=== PATIENT | male | born 1995 | race Caucasian/White ===

== ENCOUNTER 2019-10-07 21:38 | Emergency (ER) | payer SELFPAY ==
[2019-10-07] MEDS ORDERED: HYDROCODONE/ACETAMINOPHEN 5-325 MG TABLET PO ONE (21:47)
--- NOTE | 2019-10-07 21:50 | ER Document Report ---
ED Medical Screen (RME) - General Chief Complaint: Arm Injury Stated Complaint: FALL Time Seen by Provider: 10/07/19 21:47 Mode of Arrival: Ambulatory Information source: Patient Notes: Patient states he slipped down 6 steps injuring his right upper extremity. Patient complains of the worst pain to the right elbow although does have pain in the proximal forearm and distal humerus. I have greeted and performed a rapid initial assessment of this patient. A comprehensive ED assessment and evaluation of the patient, analysis of test results and completion of the medical decision making process will be conducted by additional ED providers. Physical Exam - Vital signs Vitals: Temp Pulse Resp BP Pulse Ox 97.6 F 86 16 121/82 100 10/07/19 21:42 10/07/19 21:42 10/07/19 21:42 10/07/19 21:42 10/07/19 21:42 - General General appearance: Appears well, Alert Notes: Tenderness to the distal right humerus proximal right forearm and right elbow, abrasion overlying the elbow and forearm, 2+ radial pulse Course - Vital Signs Vital signs: Temp Pulse Resp BP Pulse Ox 97.6 F 86 16 121/82 100 10/07/19 21:42 10/07/19 21:42 10/07/19 21:42 10/07/19 21:42 10/07/19 21:42
--- NOTE | 2019-10-07 22:30 | RADIOLOGY REPORT (SQ) ---
EXAM DESCRIPTION: XR HUMERUS COMPLETED DATE/TME: 10/07/2019 21:47 CLINICAL HISTORY: 24 years, Male, fall COMPARISON: None. NUMBER OF VIEWS: 2 TECHNIQUE: 2 views right humerus LIMITATIONS: None. FINDINGS: Negative for acute fracture or dislocation. Prominent nutrient vessel seen on the lateral view distally. Soft tissues are unremarkable IMPRESSION: Negative exam copyright 2011 [employer]- All Rights Reserved
--- NOTE | 2019-10-07 22:33 | RADIOLOGY REPORT (SQ) ---
EXAM DESCRIPTION: Right forearm, two view series CLINICAL HISTORY: 24 years Male, fall COMPARISON: None. FINDINGS: No evidence for fracture dislocation. Soft tissues are unremarkable. IMPRESSION: Unremarkable right forearm film
--- NOTE | 2019-10-07 22:35 | RADIOLOGY REPORT (SQ) ---
EXAM DESCRIPTION: CLINICAL HISTORY: 24 years Male, . Acute trauma. COMPARISON: None. FINDINGS: No evidence for fracture dislocation or soft tissue abnormality. IMPRESSION: Negative right elbow films.
[2019-10-08] MEDS ORDERED: OXYCODONE-ACETAMINOPHEN 5-325 MG TABLET PO ONE (00:30)
[2019-10-08] MEDS ORDERED: PROMETHAZINE HCL 25 MG TABLET PO ONE (00:30)
[2019-10-08] MEDS ORDERED: IBUPROFEN 600 MG TABLET PO ONE (00:30)
--- NOTE | 2019-10-08 00:34 | ER Document Report ---
HPI - HPI Time Seen by Provider: 10/07/19 21:47 Pain Level: 5 Context: Patient is a 24-year-old male that comes to the emergency department for chief complaint of injury to the right forearm, elbow, distal arm. He states that he slipped and fell on steps landing on his elbow causing an abrasion, bruising, swelling. He denies numbness, shoulder pain, neck injury, head injury, or any other complaints. His tetanus is reportedly up-to-date within 5 years. He takes no daily medications. Past Medical History - General Information source: Patient - Social History Smoking Status: Unknown if Ever Smoked Drug Abuse: None Lives with: Spouse/Significant other Family History: Reviewed & Not Pertinent Patient has suicidal ideation: No Patient has homicidal ideation: No - Immunizations Immunizations up to date: Yes Hx Diphtheria, Pertussis, Tetanus Vaccination: Yes Vertical Provider Document - CONSTITUTIONAL General Appearance: WD/WN, No Apparent Distress - HEENT HEENT: Atraumatic, Normal ENT Exam, Normocephalic - NECK Neck: Normal Inspection - RESPIRATORY Respiratory: Breath Sounds Normal, No Respiratory Distress - CARDIOVASCULAR Cardiovascular: Regular Rate, Regular Rhythm - GI/ABDOMEN Gastrointestinal: Abdomen Soft, Abdomen Non-Tender. negative: Abdomen Tender, Abdominal Guarding - BACK Back: Normal Inspection - Non-tender back generally on palpation. No midline tenderness, no saddle anesthesia, no signs of trauma. Normal upper and lower extremity range of motion, normal strength, normal distal neurovascular exam. - MUSCULOSKELETAL/EXTREMETIES Musculoskeletal/Extremeties: MAEW, FROM, Tender - There is an abrasion over the right lateral proximal forearm and contusion over the elbow extending to the proximal forearm next to the abrasion. Patient has pain extending the elbow but is able to do so. 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 Course - Re-evaluation Re-evalutation: Evaluation is reassuring without compartment syndrome, concerning wounds, concerning injuries otherwise. X-rays are negative. Discussed care, expectations, follow-up and return precautions. Patient states understanding and agreement. - Vital Signs Vital signs: Temp Pulse Resp BP Pulse Ox 97.7 F 73 20 128/73 H 97 10/08/19 00:06 10/08/19 00:06 10/08/19 00:06 10/08/19 00:06 10/08/19 00:06 - Diagnostic Test Radiology reviewed: Image reviewed, Reports reviewed Discharge - Discharge Clinical Impression: Contusion of skin, Skin abrasion Right forearm injury Qualifiers: Encounter type: initial encounter Qualified Code(s): S59.911A - Unspecified injury of right forearm, initial encounter Injury of right lower arm Qualifiers: Encounter type: initial encounter Qualified Code(s): S59.911A - Unspecified injury of right forearm, initial encounter Condition: Stable Disposition: HOME, SELF-CARE Additional Instructions: Your x-rays are negative for fracture. This is soft tissue swelling only. Keep the abrasion clean, clean with soap and water, apply topical antibiotic. Ice the arm 3-4 times a day for 10 to 15 minutes. Use the sling for comfort. Take the anti-inflammatory as prescribed. Symptoms should resolve with time. Resume normal activity as tolerated. Follow-up with primary care. Return for any concerning symptoms including severe worsening swelling or pain. Prescriptions: Naproxen 500 mg PO BID PRN #20 tablet PRN Reason:
[2019-10-08 01:02] VITALS: BP 126/68
== END 2019-10-08 01:05 | disposition home or self-care (01) ==
LOC: ER 21:38
DX: S40.021A Contusion of right upper arm, initial encounter (principal); S40.811A Abrasion of right upper arm, initial encounter; S59.911A Unspecified injury of right forearm, initial encounter; M79.89 Other specified soft tissue disorders; W10.9XXA Fall (on) (from) unspecified stairs and steps, initial encounter
CPT/HCPCS: 99283